=== PATIENT | male | born 1995 | race African-American/Black ===

== ENCOUNTER 2025-06-16 13:00 | Inpatient (IN) | payer OTHER ==
[~2025-06-16] VITALS: Ht 195.6 cm; Wt 65.8 kg
[2025-06-16 13:54] LABS: PLATELET COUNT (AUTO) 201 K/uL (152-348); RED BLOOD CELL COUNT(AUTO) 4.52 MIL/uL (4.06-5.63); RED CELL DISTRIBUTION WIDTH 12.8 % (12.1-16.2); WHITE BLOOD COUNT (AUTO) 11.9 K/uL (3.6-10.2)
[2025-06-16 14:00] LABS: CREATININE 1.3 mg/dL (0.6-1.3); SODIUM SERUM 139.0 mmol/L (136-145); UREA NITROGEN, BLOOD 13.0 mg/dL (7-18)
[2025-06-16] MEDS ORDERED: HYDROCODONE/APAP 5-325MG TABLET ONE (14:04)
[2025-06-16 14:06] LABS: ASPARTATE AMINOTRANSFERASE 10.0 U/L (15-37); TOTAL PROTEIN, SERUM 8.5 g/dL (6.4-8.2)
[2025-06-16] MEDS: HYDROCODONE/APAP 5-325MG TABLET PO ONE (14:08)
[2025-06-16] MEDS ORDERED: IV NORMAL SALINE 250 ML IV ONE (14:39)
[2025-06-16] MEDS ORDERED: IOHEXOL 300MG/ML 100 ML INFUS..BTL ONE (14:39)
[2025-06-16] MEDS ORDERED: SWABABLE VALVE TRANSFER SET EA MC ONE (14:39)
[2025-06-16] MEDS ORDERED: PIPERACILLIN/TAZOBACTAM/D5W 50 ML IV ONE ×3 (16:20→20:12)
[2025-06-16] MEDS ORDERED: KETOROLAC TROMETHAMINE 15 MG INJ ONE (16:21)
[2025-06-16] MEDS: PIPERACILLIN SODIUM/TAZOBACTAM 3.375 G in IV DEXTROSE 5% 50 ML IV ONE (16:28)
[2025-06-16] MEDS: KETOROLAC TROMETHAMINE 15 MG INJ IVP ONE (16:28)
[2025-06-16 17:00] VITALS: BP 110/69
[2025-06-16] MEDS ORDERED: ONDANSETRON 4 MG/2 ML VIAL ONE (17:56)
[2025-06-16] MEDS ORDERED: HYDROMORPHONE 1 MG/1 ML DISP.SYRIN ONE (17:56)
[2025-06-16] MEDS: ONDANSETRON 4 MG/2 ML VIAL IV ONE (18:01)
[2025-06-16] MEDS: HYDROMORPHONE 1 MG/1 ML DISP.SYRIN IV ONE (18:01)
[2025-06-16 19:05] VITALS: BP 108/71; TEMP 98.3
[2025-06-16 19:30] VITALS: BP 112/77; TEMP 98.4; O2SAT 99
[2025-06-16] MEDS ORDERED: MAGNESIUM HYDROXIDE 30 ML LIQUID UDC PO PRN (19:30)
[2025-06-16] MEDS ORDERED: REMEDY ESSENTIAL ZINC PASTE 113 GM TP PRN (19:30)
[2025-06-16] MEDS ORDERED: ONDANSETRON 4 MG/2 ML VIAL IV PRN (19:30)
[2025-06-16] MEDS: IV NS 1000 ML 1,000 ML IV PRN (20:19)
[2025-06-16] MEDS: HYDROMORPHONE 1 MG/1 ML DISP.SYRIN IV PRN (20:29)
[2025-06-16] MEDS: PIPERACILLIN SODIUM/TAZOBACTAM 3.375 G in IV DEXTROSE 5% 50 ML IV SCH (23:35)
[2025-06-16] MEDS: HYDROCODONE/APAP 10-325 MG TABLET PO PRN (23:51)
[2025-06-17] MEDS ORDERED: PIPERACILLIN SODIUM/TAZOBACTAM 3.375 G in IV DEXTROSE 5% 50 ML IV SCH
[2025-06-17 06:13] VITALS: BP 96/56; TEMP 97.7; O2SAT 100
[2025-06-17 06:38] LABS: PLATELET COUNT (AUTO) 182 K/uL (152-348); RED BLOOD CELL COUNT(AUTO) 4.14 MIL/uL (4.06-5.63); RED CELL DISTRIBUTION WIDTH 12.6 % (12.1-16.2); WHITE BLOOD COUNT (AUTO) 9.7 K/uL (3.6-10.2)
[2025-06-17 06:53] LABS: CREATININE 1.3 mg/dL (0.6-1.3); SODIUM SERUM 141.0 mmol/L (136-145); UREA NITROGEN, BLOOD 14.0 mg/dL (7-18)
[2025-06-17 10:26] VITALS: BP 97/59; TEMP 97.8; O2SAT 99
[2025-06-17] MEDS ORDERED: NALOXONE HCL 0.4 MG/ML AMPUL IV PRN (13:15)
[2025-06-17] MEDS ORDERED: MIDAZOLAM HCL 2 MG/2 ML VIAL IV PRN (13:15)
[2025-06-17] MEDS ORDERED: FENTANYL CITRATE 100 MCG/2 ML AMPUL IV PRN (13:15)
[2025-06-17] MEDS: PIPERACILLIN SODIUM/TAZOBACTAM 3.375 G in IV DEXTROSE 5% 100 ML IV SCH (16:42)
[2025-06-17 19:44] VITALS: BP 112/67; TEMP 98.5; O2SAT 100
[2025-06-17] MEDS: DOCUSATE SODIUM 100 MG CAPSULE PO SCH (22:47)
[2025-06-18 05:52] VITALS: BP 94/50; TEMP 98.3; O2SAT 100
[2025-06-18 06:44] LABS: PLATELET COUNT (AUTO) 186 K/uL (152-348); RED BLOOD CELL COUNT(AUTO) 3.91 MIL/uL (4.06-5.63); RED CELL DISTRIBUTION WIDTH 12.6 % (12.1-16.2); WHITE BLOOD COUNT (AUTO) 7.4 K/uL (3.6-10.2)
[2025-06-18 06:55] LABS: CREATININE 1.0 mg/dL (0.6-1.3); SODIUM SERUM 139.0 mmol/L (136-145); UREA NITROGEN, BLOOD 6.0 mg/dL (7-18)
[2025-06-18] MEDS: MIRALAX 17 GM POWD.PACK PO SCH (08:51)
[2025-06-18] MEDS: ACETAMINOPHEN 325 MG TABLET PO PRN (09:10)
[2025-06-18 11:58] VITALS: BP 122/77; TEMP 98.4; O2SAT 99
[2025-06-18 16:04] VITALS: BP 116/76; TEMP 98.9; O2SAT 100
[2025-06-18 20:05] VITALS: BP 121/84; TEMP 99.1; O2SAT 100
[2025-06-19 04:12] VITALS: BP 96/63; TEMP 98.6; O2SAT 99
[2025-06-19 07:22] LABS: PLATELET COUNT (AUTO) 192 K/uL (152-348); RED BLOOD CELL COUNT(AUTO) 3.94 MIL/uL (4.06-5.63); RED CELL DISTRIBUTION WIDTH 12.4 % (12.1-16.2); WHITE BLOOD COUNT (AUTO) 5.7 K/uL (3.6-10.2)
[2025-06-19 07:32] LABS: CREATININE 0.9 mg/dL (0.6-1.3); SODIUM SERUM 141.0 mmol/L (136-145); UREA NITROGEN, BLOOD 4.0 mg/dL (7-18)
[2025-06-19 09:00] LABS: EOSINOPHILS % (MANUAL) 4 % (0-8); LYMPHOCYTES % (MANUAL) 32 % (20-40); MONOCYTES % (MANUAL) 12 % (2-10); NEUTROPHILS % (MANUAL) 52 % (42-75); PLATELET ESTIMATE ADEQUATE
[2025-06-19 11:35] VITALS: BP 110/80; TEMP 98.9; O2SAT 100
[2025-06-19] MEDS ORDERED: POLY17PO4 PO (12:08)
[2025-06-19] MEDS ORDERED: TRAM50TA2 PO (12:08)
[2025-06-19] MEDS ORDERED: METR500T PO (12:08)
[2025-06-19] MEDS ORDERED: CIPR-262 PO (12:08)
== END 2025-06-19 15:00 | disposition home or self-care (01) | DRG 394 ==
LOC: ER 13:00 → MEDSURG3 18:14
PROVIDERS: ADMIT Nurse Practitioner Acute Care; ATTEND Nurse Practitioner Acute Care
PROC: 0D9P3ZZ Drainage of Rectum, Percutaneous Approach (ICD-10-PCS; principal; 2025-06-17)
DX: K61.2 Anorectal abscess (principal); L02.31 Cutaneous abscess of buttock; K59.00 Constipation, unspecified; K62.89 Other specified diseases of anus and rectum; D72.829 Elevated white blood cell count, unspecified; J45.909 Unspecified asthma, uncomplicated; N43.3 Hydrocele, unspecified
CPT/HCPCS: 36415; 70030-TC; 72193; 75989; 83690; 83735; 84100; 85025; 85730; A4606; A4663; C1729; G0378; J1171; J1885; J2250; J2405; J2543; J3010; J7040; J7042; J7120; Q9967